=== PATIENT | male | born 1960 | race Caucasian/White ===

== ENCOUNTER 2019-01-16 11:58 | Observation (INO) ==
[2019-01-16] MEDS ORDERED: ZOFRAN IV PRN (13:26)
[2019-01-16] MEDS ORDERED: D50W SYRINGE IV PRN (13:30)
[2019-01-16] MEDS: NORCO-5 PO PRN ×2 (13:55→20:13)
--- NOTE | 2019-01-16 14:21 | EKG Report ---
Test Performed on : 01/16/2019 1:58:24 PM Test Reason : Abd pain Blood Pressure : / mmHG Vent. Rate : 085 BPM Atrial Rate : 085 BPM P-R Int : 194 ms QRS Dur : 086 ms QT Int : 362 ms P-R-T Axes : 007 -01 061 degrees QTc Int : 430 ms Normal sinus rhythm. Normal ECG When compared with ECG of 05-JAN-2018 16:04, No significant change was found Confirmed by Charlie RUIZ, Ryan Stoddard ([id number]) on 01/18/2019 6:34:09 PM
--- NOTE | 2019-01-16 14:39 | Diag Imaging Result Doc PS360 ---
ABDOMEN FLAT/UPRIGHT - 01/16/2019 INDICATION: abd pain COMPARISON: 07/19/2018 FINDINGS: There is a nonobstructive bowel gas pattern. No free air or abdominal calcifications. There are stable surgical clips in the right upper quadrant. There is no significant constipation. IMPRESSION: No acute disease. Electronically signed by Maximo Barrett 01/16/2019 2:36 PM
[2019-01-16 15:01] LABS: BASO# 0.02 X1000 (0.0-0.2); BASO% 0.3 % (0.0-0.8); EOS# 0.15 X1000 (0.0-0.7); EOS% 2.5 % (0.0-10.0); HEMATOCRIT 38.2 % (42.0-52.0); HEMOGLOBIN 13.3 g/dL (14.0-18.0); LYMPH# 1.54 X1000 (1.2-3.4); LYMPH% 25.2 % (20.5-51.1); MCHC 34.8 g/dL (33-37); MONO# 0.33 X1000 (0.11-0.59); MONO% 5.4 % (1.7-9.3); MPV 9.3 FL (7.4-10.4); NEUT# 4.08 X1000 (1.4-6.5); NEUT% 66.6 % (42.2-75.2); PLT 142 X1000 (130-400); RBC 4.15 XMIL (4.7-6.1); RDW 14.1 % (11.5-14.5); WBC 6.12 X1000 (4.8-10.8)
[2019-01-16 15:43] LABS: ALB/GLOB RATIO 1.4; CALCIUM 8.5 mg/dL (8.8-10.2); CREATININE 1.4 mg/dL (0.7-1.2); TOTAL BILIRUBIN 0.39 mg/dL (0.20-1.00); TOTAL PROTEIN 6.9 g/dL (6.3-8.3)
[2019-01-16] MEDS: NS 1,000 ML IV SCH (16:18)
--- NOTE | 2019-01-16 16:33 | Diag Imaging Result Doc PS360 ---
US ABDOMEN-COMPLETE - 01/16/2019 INDICATION: Abd pain COMPARISON: CT 01/13/2019 FINDINGS: There is fatty infiltration throughout the liver transplant. No liver masses. No biliary dilation. Common bile duct measures 5 mm. No mass or fluid collection. There is splenomegaly. The spleen measures 16 x 14.9 x 8.5 cm. The pancreas is obscured. Both kidneys are normal. Main portal vein is largely obscured. Aorta and IVC are normal. IMPRESSION: Hepatic steatosis. Splenomegaly. No change from prior. Electronically signed by Maximo Barrett 01/16/2019 4:31 PM
[2019-01-16] MEDS: GLUCOPHAGE PO SCH ×2 (18:20→18:21)
--- NOTE | 2019-01-16 19:24 | HISTORY AND PHYSICAL ---
CHIEF COMPLAINT: Right upper quadrant and flank pain. HISTORY OF PRESENT ILLNESS: This is a 58-year-old white gentleman, known case of liver transplant, diabetes mellitus, hypertension, history of DVT, shingles, morbid obesity, not doing well over last 10 to 12 days complaining of pain in the right flank and upper quadrant, sharp pain, moderate to severe in intensity. Initially patient described pain as his shingle pain. I evaluated patient in the office, gave him some pain medicine and prescription for Valtrex to start if he developed rash of shingles. Patient did not develop rash of shingles. He took a few pain pills, but it did not help. Pain was getting worse. Pain was mainly right upper quadrant and right flank area. At times, it comes and goes. At times, pain was unbearable. Patient came to emergency room. Evaluated by ER physician. The patient had CT scan of the abdomen and pelvis done for renal stone search, which did reveal significant constipation. The patient was given magnesium citrate. The patient did have a good bowel movement, but still it did not help his pain. Again patient came to my office complaining of similar pain, at times nausea but no vomiting. The patient did have tenderness right upper quadrant. No rash. No gross hematuria. No high-grade fever. The patient did have chills. No rash of shingles. I evaluated patient, decided to admit him for observation as patient was not responding to outpatient treatment. He did have ER visit, also multiple office visits. The patient denied any high-grade fever. No unusual cough, expectoration, or hemoptysis. No history of trauma, claimed compliance to his antirejection medicine. The patient claims he does have pain when he coughs. No dysuria or hematuria. Denied abdominal distention. The patient claimed he was tired of hurting. The patient and family were concerned. No typical chest pain, palpitations, orthopnea or PND. ALLERGIES: Propoxyphene, iodinated contrast. MEDICATIONS: Include Prograf, azathioprine, Zetia, Humalog, Norvasc, Eliquis, aspirin, vitamin D3, Tresiba, lisinopril, Glucophage, Zantac, Januvia. PAST MEDICAL HISTORY: Liver transplant, diabetes mellitus requiring insulin, hypertension, history of DVT, coronary artery disease, hyperlipidemia, vitamin D deficiency, osteoarthritis, gastritis. SOCIAL HISTORY: Single, nonsmoker. Denied alcohol or substance abuse. FAMILY HISTORY: Significant for mother with COPD, diabetes, hypertension and atrial fibrillation. Father had hypertension and atrial fibrillation. REVIEW OF SYSTEMS: As per HPI. Otherwise unobtainable. PHYSICAL EXAMINATION: GENERAL: Middle-aged white gentleman in mild distress. VITAL SIGNS: Blood pressure 123/82, pulse 100, respirations 20, temperature 97.5 degrees. SKIN: Normal turgor. No rash or petechiae. HEENT: Head atraumatic, normocephalic. [place] conjunctivae. Anicteric sclerae. Extraocular muscle movement normal. Fundus cannot be penetrated. Good oral hygiene. No tonsillopharyngeal congestion or exudate. Ears and nose benign. NECK: Supple. No JVD, thyromegaly or lymphadenopathy. CHEST: Bilateral good air entry present. Few basal crepitations. No rales. CARDIOVASCULAR: S1 and S2 heard. No gallop or thrill. A 2/6 systolic murmur at the apex. ABDOMEN: Soft. No distention. Bowel sounds present. Tenderness right upper quadrant. No guarding or rigidity. EXTREMITIES: No cyanosis, clubbing. No acute DVT. CENTRAL NERVOUS SYSTEM: Alert, awake, able to move all 4 limbs. MUSCULOSKELETAL SYSTEM: Vague tenderness lumbosacral spine. No evidence of rash of shingles. LABORATORY DATA: Revealed hemoglobin 13.3, hematocrit 38.2, WBC count 6.12, platelet count 142,000. Electrolytes were fairly benign. BUN 17, creatinine 1.4. Cardiac isoenzymes were negative. Amylase and lipase were normal. I did abdominal x-ray, which did not reveal any acute disease. No significant constipation. I did abdominal ultrasound for further evaluation. It revealed hepatic steatosis, splenomegaly. It was stable. Urinalysis result is pending. CONSIDERATION: Right upper quadrant pain and right flank pain. The patient had multiple office visits, also ER visit. I wanted to observe patient. After reviewing his presentation, labs, possibility of musculoskeletal pain cannot be ruled out. There was question about post herpetic neuralgia, but patient was pain free after his shingles for quite some time. I am going to start the patient on Neurontin, close observation. We will monitor Accu-Chek. I did GI consult. Impression and plan discussed. Gentle hydration. Overall plan discussed with the patient. If clinical condition permits, I am planning to discharge the patient home tomorrow. cc: Kj Kong MD
[2019-01-16 20:39] LABS: URINE SOURCE CLEAN CATCH
[2019-01-16 20:43] LABS: BILIRUBIN URINE NEGATIVE (NEGATIVE); BLOOD URINE TRACE (NEGATIVE); COLOR YELLOW; GLUCOSE URINE NEGATIVE (NEGATIVE); KETONE URINE NEGATIVE (NEGATIVE); LEUKOCYTES URINE NEGATIVE (NEGATIVE); NITRITE URINE NEGATIVE (NEGATIVE); PH URINE 6.5; PROTEIN URINE TRACE mg/dL (NEGATIVE); SP GRAVITY URINE 1.019; TURBIDITY URINE CLEAR (CLEAR); UR EPITHELIAL CELLS <10 /HPF (<10); URINE BACTERIA NEGATIVE /HPF; URINE RBC <10 /HPF (<10); URINE WBC <10 /HPF (<10); UROBILINOGEN URINE NORMAL (NORMAL)
[2019-01-16] MEDS: ELIQUIS PO SCH (20:44)
[2019-01-16] MEDS: LYRICA PO SCH (20:44)
[2019-01-16] MEDS ORDERED: TRESIBA FLEXTOUCH U-100 SUBQ SCH (21:00)
[2019-01-16] MEDS: HUMALOG SUBQ SCH ×2 (21:17→22:04)
[2019-01-17] MEDS: PROGRAF PO SCH ×2 (00:47→10:16)
[2019-01-17] MEDS ORDERED: INSULIN PEN NEEDLES ONE (00:54)
[2019-01-17] MEDS: VITAMIN D PO SCH ×2 (00:55→10:25)
[2019-01-17] MEDS: NS 1,000 ML IV SCH (02:54)
[2019-01-17] MEDS: NORCO-5 PO PRN (03:50)
--- NOTE | 2019-01-17 05:04 | GASTROENTEROLOGY CONSULTATION ---
DATE: 01/16/2019 HISTORY OF PRESENT ILLNESS: Mr. Horacio Easton is a 58-year-old gentleman with a past medical history significant for hypertension, hyperlipidemia, coronary artery disease status post stents, history of DVT PE on Eliquis, CKD, noninsulin-dependent diabetes, chronic thrombocytopenia, and history of ZAFAR cirrhosis status post liver transplant in 2013, who presents with approximately 2 weeks of right upper quadrant pain. The patient reports having right upper quadrant pain that is sharp in intensity up to 10 out of 10 in severity, that is aggravated with cough, deep breathing, and movement. He also says his pain occurs occasionally with eating. He reports some nausea without vomiting. No constipation, diarrhea or rectal bleeding or melena. He was seen in the Liver Transplant Clinic at [facility] last week and was to followup with a gastrologist for further evaluation of his pain. No fever, no weight loss. No chest pain or shortness of breath. He was seen in the emergency room for these symptoms on 01/13, and had labs including CMP, CBC, lipase, and LFTs that were unrevealing. A renal CT was negative for kidney stones and notable for fatty liver, constipation, diverticulosis and status post cholecystectomy. Patient was discharged on a bowel regimen and magnesium citrate with good bowel movements, however, no improvement of his pain. REVIEW OF SYSTEMS: As per HPI, otherwise review of systems is negative. PAST MEDICAL HISTORY: As per HPI. Also vitamin D deficiency, osteoarthritis, gastritis. History of shingles. SOCIAL HISTORY: Nonsmoker. No alcohol or drug use. FAMILY HISTORY: Negative for GI malignancies. MEDICATIONS: 1. Tacrolimus 2 mg twice a day. 2. Azathioprine 100 mg daily. 3. Zetia. 4. Humalog. 5. Norvasc. 6. Eliquis. 7. Aspirin. 8. Vitamin D. 9. Tarceva. 10. Lisinopril. 11. Glucophage. 12. Zantac. 13. Januvia. ALLERGIES: PROPOXYPHENE AND IODINATED CONTRAST. PHYSICAL EXAMINATION: VITAL SIGNS: Temperature is 98.3, heart rate of 85, respiratory rate of 22, blood pressure 134/95, O2 saturation 96% on room air. GENERAL: Patient is awake, alert, oriented, in no acute distress. HEENT: Sclerae anicteric. Moist mucous membranes. Extraocular motor intact. NECK: Supple. No JVD or lymphadenopathy. CARDIAC: Regular rate and rhythm. No murmurs. LUNGS: Clear to auscultation bilaterally. ABDOMEN: Obese, soft. Tenderness to palpation in the right upper quadrant and right flank with minimal palpation. Notable light touch causes tenderness. No rebound, voluntary guarding. No rashes in the right upper quadrant. No CVA tenderness bilaterally. Bowel sounds are present. EXTREMITIES: No clubbing, cyanosis or edema. NEURO: Nonfocal. LABORATORY DATA: White count of 6.1, hemoglobin 13.3, platelets 142,000. Sodium 140, potassium 5.0, chloride of 107, bicarb 23, BUN is 17, creatinine stable at 1.4, glucose of 154. LFTs are within normal limits. Lipase of 23. UA shows mild proteinuria and hematuria. IMAGING: Abdominal ultrasound shows hepatic steatosis with splenomegaly. No change from prior. X-ray shows no acute disease. Patient had an EGD in June 2018, that showed erosive gastritis. Colonoscopy in October 2016, showed mild diverticulosis of the colon, particularly in the right side. ASSESSMENT AND PLAN: 1. Mr. 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 His symptoms appear to be non-luminal in etiology. Differential includes musculoskeletal, postherpetic neuralgia although I would expect this to have occurred at the time of the shingles and persisted thereafter. It is unlikely that he would have luminal disease that is aggravated with light touch to the skin. Also his pain is pleuritic in nature, no pulmonary symptoms to suggest PE. His respiratory status is normal. There is no evidence of constipation and the patient denies changes in his bowel habits. His labs are unremarkable. His creatinine is at baseline. I would treat him supportively with topical therapies including lidocaine patch and consider medications for possible neuropathy including gabapentin and/or [*] 2. For his liver transplant, will continue him on his home tacrolimus 2 mg twice a day, and azathioprine 100 mg daily. I attempted to call the liver transplant director physical therapy electronic science teacher at [facility]. A return call is pending. 3. Chronic kidney disease. His creatinine is stable at 1.4. Avoid nephrotoxic agents, renally dose his medications. 4. History of deep venous thrombosis, pulmonary embolus. Continue home Eliquis. 5. Coronary artery disease. Continue home aspirin. 6. Insulin-dependent diabetes mellitus type 2. Continue his home medications. 7. Hypertension. Stable. Continue home medication. Thank you for this consultation. Please call with any questions or concerns. Will follow with you. cc: Kj Kong MD
[2019-01-17] MEDS: HUMALOG SUBQ SCH (06:13)
--- NOTE | 2019-01-17 07:11 | PROGRESS NOTE ---
DATE: 01/17/2019 SUBJECTIVE: Mr. Easton is doing fair. The patient was able to sleep better. The pain seems to be less intense. No nausea or vomiting. No high-grade fever or chills. No typical chest pain. OBJECTIVE: Vital Signs: Noted. Neck: Supple. No JVD. Lungs: Bilateral good air entry present. Cardiovascular: S1 and S2 heard. Abdomen: Soft, nontender. Bowel sounds present. Patient does have soreness in the right flank and upper quadrant though less intense. No acute DVT. Extremities: Evidence of chronic venous stasis lower limb. SURGICAL ELASTIC KNITTER: Alert, awake, and oriented x3. CONSIDERATION: Patient admitted with right flank and upper quadrant pain. It was moderate. Difficult to comment etiology. I repeated workup including abdominal x-ray, ultrasound and blood work; it was benign which was reassuring. We started patient on Lyrica. He seems to be responding to it well. His pain more in favor of post herpetic neuralgia or musculoskeletal pain. Advised patient on non pharmacologic treatment for musculoskeletal pain. We will try Lyrica. Discussed side effects and precaution. Continue rest of the treatment. Fall precaution. Follow up with me in 1 week. I gave him prescription for Lyrica and a few [place]. In case of more distress, call us back or go to the emergency room. Overall discharge condition satisfactory. cc: Kj Kong MD
[2019-01-17 08:01] VITALS: BP 120/84
[2019-01-17 08:04] LABS: HEMATOCRIT 35.1 % (42.0-52.0); HEMOGLOBIN 11.8 g/dL (14.0-18.0); MCH 31.8 PG (27-31); MCHC 33.6 g/dL (33-37); MCV 94.6 FL (81-99); MPV 9.6 FL (7.4-10.4); RBC 3.71 XMIL (4.7-6.1); RDW 14.2 % (11.5-14.5); WBC 4.46 X1000 (4.8-10.8)
[2019-01-17] MEDS ORDERED: NORCO-5 PO ONE (08:09)
[2019-01-17 08:34] LABS: ALB/GLOB RATIO 1.3; ALBUMIN 3.4 g/dL (3.5-5.0); CREATININE 1.3 mg/dL (0.7-1.2); POTASSIUM 4.7 mmol/L (3.5-5.1); TOTAL BILIRUBIN 0.39 mg/dL (0.20-1.00)
[2019-01-17] MEDS ORDERED: ZANTAC PO SCH (09:00)
[2019-01-17] MEDS ORDERED: PRINIVIL PO SCH (09:00)
[2019-01-17] MEDS ORDERED: ZETIA PO SCH (09:00)
[2019-01-17] MEDS ORDERED: ASPIRIN EC PO SCH (09:00)
[2019-01-17] MEDS ORDERED: NORVASC PO SCH (09:00)
[2019-01-17] MEDS ORDERED: JANUVIA PO SCH (09:00)
[2019-01-17] MEDS ORDERED: IMURAN PO SCH (09:00)
[2019-01-17] MEDS: ELIQUIS PO SCH (10:13)
[2019-01-17] MEDS: LYRICA PO SCH (10:14)
[2019-01-17] MEDS: GLUCOPHAGE PO SCH (10:15)
--- NOTE | 2019-01-17 18:26 | PROVIDER PROGRESS NOTE ---
Progress Note SUBJECTIVE: No acute overnight events. Patient reports improvement of RUQ pain after starting Lyrica last night. No N/V/F, CP, SOB. Tolerating diet. OBJECTIVE: Last Vital Signs Temp 97.6 F 01/17/19 07:59 Pulse 86 01/17/19 07:59 Resp 16 01/17/19 07:59 BP 120/84 01/17/19 07:59 Pulse Ox 93 L 01/17/19 07:59 Height 6 ft 3 in Weight 302 lb 4 oz GEN: awake, alert, NAD HEENT: anicteric, MMM NECK: supple, no jvd PULM: CTAB, no wheezing CV: RRR, no murmurs ABD: obese, soft, minimal RUQ TTP, no rebound or guarding EXT: no cce NEURO: nonfocal LABS: 01/17/19 01/17/19 07:10 07:10 WBC 4.46 L Hgb 11.8 L Plt Count 122 L Sodium 139 Potassium 4.7 Chloride 108 H Carbon Dioxide 23 L BUN 18 Creatinine 1.3 H Glucose 101 Total Bilirubin 0.39 AST 11 ALT 9 L Alkaline Phosphatase 49 Total Protein 6.0 L Albumin 3.4 L US ABDOMEN-COMPLETE - 01/16/2019 INDICATION: Abd pain COMPARISON: CT 01/13/2019 FINDINGS: There is fatty infiltration throughout the liver transplant. No liver masses. No biliary dilation. Common bile duct measures 5 mm. No mass or fluid collection. There is splenomegaly. The spleen measures 16 x 14.9 x 8.5 cm. The pancreas is obscured. Both kidneys are normal. Main portal vein is largely obscured. Aorta and IVC are normal. IMPRESSION: Hepatic steatosis. Splenomegaly. No change from prior. A/P: Mr. Horacio Easton is a 58-year-old gentleman with history notable for nonalcoholic steatohepatitis cirrhosis status post liver transplant in 2013, history of shingles and gastritis who was admitted with 2 weeks of RUQ that is positional and pleuritic in nature. No CP, SOB, or palpitations. The pain is reproducible with light touch in the RUQ suggestive of abdominal wall vs neuropathic pain. He had some improved overnight with initiation of Lyrica. # RUQ pain: likely MSK-related, neuropathic - continue Lyrica - avoid NSAIDs - consider lidocaine patch as needed # OLT: LFTs at baseline; continue home tacrolimus and imuran; follow-up with Dr. Corbin and [facility] transplant clinic upon discharge # CKD: Cr at baseline # History of DVT/PE: continue Eliquis # Fatty liver: encourage weight loss Will sign off. Please call with questions.
== END 2019-01-17 13:41 | disposition home or self-care (01) ==
LOC: DIRADM → 3N 11:58
PROVIDERS: ADMIT Internal Medicine; ATTEND Internal Medicine
CPT/HCPCS: 74019; 74020; 76700; 80053; 81001; 82150; 82550; 82948; 83690; 83880; 84484; 85025; 85027; 87088; 93005; 93010; A9270; J1815; J2405; J7030; J7500; XXXXX